=== PATIENT | female | born 1950 | race Hispanic/Latino ===

== ENCOUNTER 2017-02-10 07:12 | Outpatient (CLI) | payer MEDICARE | END 2017-02-10 07:13 | disposition home or self-care (01) | LOC: BICMAMMO 07:12 | PROVIDERS: ATTEND Nurse Practitioner Family | DX: Z12.31 Encounter for screening mammogram for malignant neoplasm of breast (principal) | CPT/HCPCS: 77063; G0202; 77067 ==

== ENCOUNTER 2017-05-31 18:16 | Emergency (ER) | payer MEDICARE ==
[2017-05-31] MEDS ORDERED: HYDROcodone/Acetaminophen 5/325 mg Tablet ONE (19:52)
[2017-05-31] MEDS ORDERED: Adacel (T-DAP) 0.5 ML VIAL ONE (19:52)
[2017-05-31] MEDS ORDERED: Bacitracin Zinc 1 Packet ONE (20:03)
--- NOTE | 2017-05-31 20:03 | RAD ---
RIGHT TIBIA AND FIBULA TWO VIEWS: HISTORY: A 67-year-old female with right tibia and fibula pain. FINDINGS: Minimal focal soft tissue swelling over the anterior aspect of the proximal tibia. No fracture or di slocation. IMPRESSION: Focal anterior soft tissue swelling without fracture or dislocation. POS: VERN
== END 2017-05-31 20:20 | disposition home or self-care (01) ==
LOC: ERS 18:16
DX: S80.11XA Contusion of right lower leg, initial encounter (principal); E11.9 Type 2 diabetes mellitus without complications; E78.5 Hyperlipidemia, unspecified; E03.9 Hypothyroidism, unspecified; I10 Essential (primary) hypertension; M81.0 Age-related osteoporosis without current pathological fracture; F32.9 Major depressive disorder, single episode, unspecified; W20.8XXA Other cause of strike by thrown, projected or falling object, initial encounter
CPT/HCPCS: 90471; 90715

== ENCOUNTER 2018-03-11 10:32 | Outpatient (CLI) | payer MEDICARE | END 2018-03-11 10:33 | disposition home or self-care (01) | LOC: BICMAMMO 10:32 | PROVIDERS: ATTEND Nurse Practitioner Family | DX: Z12.31 Encounter for screening mammogram for malignant neoplasm of breast (principal) | CPT/HCPCS: 77063; 77067 ==

== ENCOUNTER 2018-11-05 12:13 | Emergency (ER) | payer MEDICARE ==
[2018-11-05 13:06] LABS: #Basophils 0.1 thou/uL (0.0-0.2); #Eosinphils 0.2 thou/uL (0.0-0.7); #Lymphocytes 1.4 thou/uL (1.20-3.40); #Monocytes 0.4 thou/uL (0.11-0.59); #Neutrophils 3.8 thou/uL (1.40-6.50); %Basophils 0.9 % (0.0-1.0); %Lymphocytes 24.7 % (21.0-51.0); %Monocytes 6.9 % (0.0-10.0); %Neutrophils 64.5 % (42.0-75.0); Hemoglobin 14.5 g/dL (12.0-16.0); Mean Corpuscular HGB CONC 34.4 g/dL (32.0-36.0); Mean Corpuscular Volume 87.3 fL (78.0-98.0); Platelet Count 151 thou/uL (130-400); RBC Distribution Width 12.5 % (11.5-14.5); Red Blood Cell (RBC) Count 4.83 mill/uL (4.20-5.40); White Blood Cell (WBC) Count 5.8 thou/uL (4.8-10.8)
[2018-11-05 13:16] LABS: Bilirubin Negative (Negative); Blood, Urine Negative (Negative); Clarity Clear (Clear); Glucose, Urine (Dipstick) Normal (Negative); Leukocyte Negative Leu/uL (Negative); Nitrite Negative (Negative); Protein, Urine (Dipstick) Negative (Neg-Trace); Urobilinogen Normal mg/dL (Less than 2)
[2018-11-05 13:29] LABS: ALT (SGPT) 25 U/L (8-55); AST (SGOT) 21 U/L (5-34); Albumin 4.8 g/dL (3.4-4.8); Alkaline Phosphatase 100 U/L (40-150); Anion Gap 12 mmol/L (10-20); BUN (Urea Nitrogen) 16 mg/dL (9.8-20.1); Bilirubin, Total 1.1 mg/dL (0.2-1.2); Calc. Creatinine Clearance 0 mL/min (70-130); Calcium 9.8 mg/dL (7.8-10.44); Carbon Dioxide 26 mmol/L (23-31); Chloride 104 mmol/L (98-107); Estimated GFR-MDRD 55; Globulin 2.8 g/dL (2.4-3.5); Glucose 117 mg/dL (80-115); Lipase 32 U/L (8-78); Potassium 4.1 mmol/L (3.5-5.1); Protein, Total 7.6 g/dL (6.0-8.3); Sodium 138 mmol/L (136-145)
--- NOTE | 2018-11-05 14:13 | CT ---
Exam: CT brain PROVIDED CLINICAL HISTORY: Dizziness COMPARISON: 01/17/2006 FINDINGS: The ventricular system is normal in size and morphology. No evidence for intracranial hemorrhage or mass effect. The extracranial soft tissues and osseous structures demonstrate no evidence for an acute abnormality. Stable likely dystrophic parenchymal calcifications involving the right temporal r egion. IMPRESSION: No evidence for intracranial hemorrhage or mass effect.
== END 2018-11-05 15:57 | disposition home or self-care (01) ==
LOC: ERS 12:13
DX: R53.1 Weakness (principal); T50.905A Adverse effect of unspecified drugs, medicaments and biological substances, initial encounter; E11.9 Type 2 diabetes mellitus without complications; E03.9 Hypothyroidism, unspecified; E78.5 Hyperlipidemia, unspecified; I10 Essential (primary) hypertension; M81.0 Age-related osteoporosis without current pathological fracture; F32.9 Major depressive disorder, single episode, unspecified
CPT/HCPCS: 36415; 70450; 80053; 81003; 83690; 84443; 84484; 85025; 93005; 94760

== ENCOUNTER 2019-11-01 20:24 | Inpatient (IN) | payer MEDICARE, OTHER ==
[~2019-11-01 20:24] MED LIST: Iopamidol-370 76% 500 ML 1 ML ONE
[2019-11-01 21:03] LABS: Bilirubin Negative (Negative); Blood, Urine 1+ (Negative); Clarity Clear (Clear); Glucose, Urine (Dipstick) Normal (Negative); Ketone, Urine Negative (Negative); Leukocyte 75 Leu/uL (Negative); Nitrite Negative (Negative); Protein, Urine (Dipstick) Negative (Neg-Trace); Squamous Epithelial 0-3 HPF (0-3); Urobilinogen Normal mg/dL (Less than 2); pH, Urine 6.5 (5.0-9.0)
[2019-11-01 21:04] LABS: Bacteria/HPF Rare-Few HPF (None Seen)
[2019-11-01] MEDS ORDERED: Ondansetron PF 4 MG/2 ML Vial ONE (21:17)
[2019-11-01] MEDS ORDERED: Morphine 4 MG/ML VIAL ONE (21:17)
--- NOTE | 2019-11-01 21:33 | ULT ---
EXAM: US Gallbladder RUQ CLINICAL HISTORY: Pain.. COMPARISON: None. FINDINGS: Pancreas: See head and proximal pancreatic body have a normal echotexture. The remainder the pancrea s is obscured by bowel gas Liver:Heterogeneous echotexture of the liver may be due to hepatic steatosis or hepatocellular diseas e. Subsequent limited evaluation for hepatic masses and intrahepatic biliary dilatation. Right hepatic lobe: 14.3 cm Gallbladder: No sonographic evidence of cholelithiasis, gallbladder wall thickening or pericholecysti c fluid. Louis's sign:Negative Portal Vein: Patent. Appropriate directional flow Bile ducts: 0.7 cm common bile duct diameter Right kidney: No hydronephrosis. Right kidney measures 3.8 x 3.5 x 8.3 cm in length. IMPRESSION: 1. No sonographic evidence of cholelithiasis or cholecystitis. 2. Common bile duct diameter within limits for patient age. 3. Heterogeneous echotexture of liver which may be due to hepatic steatosis or hepatocellular disease .
[2019-11-01 21:59] LABS: #Eosinphils 0.2 thou/uL (0.0-0.7); #Lymphocytes 0.8 thou/uL (1.20-3.40); #Monocytes 0.4 thou/uL (0.11-0.59); %Basophils 0.3 % (0.0-1.0); %Eosinophils 2.2 % (0.0-10.0); %Lymphocytes 10.9 % (21.0-51.0); %Monocytes 5.6 % (0.0-10.0); Hemoglobin 14.5 g/dL (12.0-16.0); Mean Corpuscular Hemoglobin 28.4 pg (27.0-31.0); Mean Corpuscular Volume 86.1 fL (78.0-98.0); Mean Platelet Volume 10.3 fL (7.4-10.4); Platelet Count 159 thou/uL (130-400); RBC Distribution Width 13.4 % (11.5-14.5); Red Blood Cell (RBC) Count 5.11 mill/uL (4.20-5.40); White Blood Cell (WBC) Count 7.4 thou/uL (4.8-10.8)
[2019-11-01 22:56] LABS: Albumin 4.3 g/dL (3.4-4.8)
[2019-11-01 22:57] LABS: Chloride 105 mmol/L (98-107); Potassium 3.7 mmol/L (3.5-5.1); Sodium 140 mmol/L (136-145)
[2019-11-01 22:58] LABS: Globulin 2.8 g/dL (2.4-3.5); Glucose 127 mg/dL (80-115); Protein, Total 7.1 g/dL (6.0-8.3)
[2019-11-01 23:00] LABS: Anion Gap 13 mmol/L (10-20); Bilirubin, Total 1.8 mg/dL (0.2-1.2); Carbon Dioxide 26 mmol/L (23-31)
[2019-11-01 23:01] LABS: Alkaline Phosphatase 234 U/L (40-110); Calc. Creatinine Clearance 0 mL/min (70-130); Estimated GFR-MDRD 60
[2019-11-01 23:02] LABS: BUN (Urea Nitrogen) 11 mg/dL (9.8-20.1)
[2019-11-01 23:03] LABS: AST (SGOT) 881 U/L (5-34)
[2019-11-01 23:04] LABS: ALT (SGPT) 686 U/L (8-55); Lipase 39 U/L (8-78)
--- NOTE | 2019-11-01 23:31 | CT ---
EXAM: CT ABDOMEN AND PELVIS HISTORY: Abdominal pain, x2 weeks. COMPARISON: None. Procedure: Multiple contiguous axial images were obtained and a CT of the abdomen and pelvis with IV contrast. C oronal reformats were performed. FINDINGS: Lower Chest: Scar and atelectasis in the lung bases Vessels: Normal caliber aorta. No significant atherosclerosis Heart: Normal heart size. No significant pericardial fluid Abdomen: Portal vein:Patent Gallbladder: Gallbladder is moderately distended with minimal hyperemia of the gallbladder wall. No d efinite evidence of: Lithiasis. No CT evidence of choledocholithiasis. If there is concern for acalculous cholecystitis, consider HIDA scan. Common bile duct diameter at the upper limits of normal . No CT evidence of choledocholithiasis. Liver: within normal limits. Pancreas: within normal limits. Spleen: within normal limits. Adrenals: within normal limits. Kidneys: Symmetric enhancement. No obstructive uropathy. Subcentimeter hypodensity in the left or rig ht renal cortex are too small to characterize but is statistically favored to be cysts. Peritoneum: No ascites or free air, no fluid collection. Bowel: Limited evaluation due to the lack of oral contrast administration. No evidence of bowel obstr uction. Ileocecal junction is unremarkable. Normal caliber appendix. Scattered fecal material in a nondistended, nondilated colon. Mesentery and Retroperitoneum: No enlarged mesenteric or retroperitoneal lymph nodes. Abdominal Wall: within normal limits. Pelvis: Reproductive Organs: Reproductive organs are unremarkable. Pelvis: No mass, lymphadenopathy, free air or free fluid. Bladder: within normal limits. Bones: within normal limits. IMPRESSION: 1. Moderately distended gallbladder without definite evidence of cholelithiasis. Correlate for acalcu steph cholecystitis, consider HIDA scan.
[2019-11-02] MEDS ORDERED: Ondansetron ODT 4 MG TAB PO PRN (00:28)
[2019-11-02] MEDS ORDERED: Ondansetron PF 4 MG/2 ML Vial IVP PRN (00:28)
[2019-11-02] MEDS ORDERED: Morphine 4 MG/ML VIAL SLOW IVP PRN (00:31)
--- NOTE | 2019-11-02 00:34 | PDOC.HHP ---
Hospitalist HPI - History of Present Illness Abdominal pain x 2 weeks History of Present Illness: PCP: [facility] The patient is algerian speaking, so a financial underwriter was utilized for the H&P. The patient is a 69 year old female with past medical history significant for DMII, HLD, HTN and hypothyroidism that presents to the ER for the above complaint. The patient reports abdominal pain x 2 weeks, located epigastric region, describes at "hot and swollen", constant, exacerbated with oral intake and relieved by nothing. Reports associated nausea and vomiting. Denies hematemesis, niharika stools or dark urine. Denies fever, chest pain and SOB. Has no other complaints at this time. ED Course: VITAL SIGNS WedNov 01, 2019 20:26 CATHERINE Perla Kassidy BP: 173/75, Pulse: 98, Resp: 20, Temp: 98.4 (Oral), Pain: 4, O2 sat: 97 on ( Room Air), Time: 11/01/2019 20:26. VITAL SIGNS WedNov 01, 2019 21:50 CATHERINE Berry Emily BP: 165/90, Pulse: 98, Resp: 20, O2 sat: 98 on (Room Air), Time: 11/01/2019 21: 50. VITAL SIGNS WedNov 01, 2019 22:30 CATHERINE Berry Emily BP: 161/86, Pulse: 79, Resp: 18, O2 sat: 96 on (Room Air), Time: 11/01/2019 22:30. Katalina Nov 02, 2019 00:21 Drug Name Dose Ordered Route Status Time morphine (PF) injection 4 mg IV Push Given 21:50 11/01/2019 *Normal Saline 1 L IV Fluid Infusion Given 21:49 11/01/2019 Zofran intravenous 4 mg IV Push Given 21:49 11/01/2019 Hospitalist ROS - Review of Systems Constitutional: denies: fever, chills Respiratory: denies: cough, shortness of breath Cardiovascular: denies: chest pain, palpitations, edema, light headedness Gastrointestinal: reports: nausea, vomiting, abdominal pain. denies: diarrhea, constipation, melena, hematochezia Genitourinary: denies: dysuria, frequency, hematuria Neurological: denies: weakness, numbness, incoordination, change in speech All other systems reviewed; all pertinent +/- noted in HPI/Subj - Medication Medications: Home Medications: Patient is poor historian. Unknown blood pressure, cholesterol and thyroid medications. Does not take anything for her diabetes. Allergies: No Known Drug Allergies Hospitalist History - Past Medical History Source: patient, RN notes reviewed Other Medical History: MEDICAL HISTORY Past medical history includes history of diabetes, Type II, Past medical history includes endocrine disease, hypothyroidism, Past medical history includes history of hyperlipidemia, high cholesterol, Past medical history includes history of hypertension, which has been treated. osteoporosis. FEMALE SURGICAL HISTORY Surgical history of tubal ligation. PSYCHIATRIC HISTORY Psychiatric history includes, depression, no previous inpatient psychiatric admissions. SOCIAL HISTORY Patient denies alcohol use, Patient denies drug use, Patient has no smoking history. Lives at home with family. Retired. Ambulates without assistance. FAMILY HISTORY: poor historian. unable to confirm. - Exam General Appearance: NAD, awake alert. negative: ill appearing General - other findings: mildly uncomfortable Eye: anicteric sclera ENT: normocephalic atraumatic Neck: supple, symmetric Heart: RRR, no murmur, no gallops, no rubs, normal peripheral pulses Respiratory: CTAB, no wheezes, no rales, no ronchi, normal chest expansion, no tachypnea Gastrointestinal: soft, non-distended, normal bowel sounds, no bruit, no guarding, no rigidity, tender to palpation (mildly tender epigastric and RUQ, negative glaser sign) Extremities: no cyanosis, no edema Skin: no rashes Neurological: normal sensation to touch, no weakness, no focal deficits Psychiatric: normal affect, A&O x 3 Hospitalist Results - Labs Result Diagrams: 11/01/19 21:48 11/01/19 22:34 Lab results: WBC 7.4 thou/uL (4.8-10.8) 11/01/19 21:48 Hgb 14.5 g/dL (12.0-16.0) 11/01/19 21:48 Hct 44.0 % (36.0-47.0) 11/01/19 21:48 MCV 86.1 fL (78.0-98.0) 11/01/19 21:48 Plt Count 159 thou/uL (130-400) 11/01/19 21:48 Neutrophils % 81.0 % (42.0-75.0) H 11/01/19 21:48 Sodium 140 mmol/L (136-145) 11/01/19 22:34 Potassium 3.7 mmol/L (3.5-5.1) 11/01/19 22:34 Chloride 105 mmol/L (98-107) 11/01/19 22:34 Carbon Dioxide 26 mmol/L (23-31) 11/01/19 22:34 BUN 11 mg/dL (9.8-20.1) 11/01/19 22:34 Creatinine 0.92 mg/dL (0.6-1.1) 11/01/19 22:34 Glucose 127 mg/dL (80-115) H 11/01/19 22:34 Calcium 9.0 mg/dL (7.8-10.44) 11/01/19 22:34 Total Bilirubin 1.8 mg/dL (0.2-1.2) H 11/01/19 22:34 AST 881 U/L (5-34) H 11/01/19 22:34 ALT 686 U/L (8-55) H 11/01/19 22:34 Alkaline Phosphatase 234 U/L (40-110) H 11/01/19 22:34 Troponin I Less than 0.010 ng/mL (< 0.028) 11/01/19 21:48 Serum Total Protein 7.1 g/dL (6.0-8.3) 11/01/19 22:34 Albumin 4.3 g/dL (3.4-4.8) 11/01/19 22:34 Lipase 39 U/L (8-78) 11/01/19 22:34 Urine Ketones Negative mg/dL (Negative) 11/01/19 20:32 Urine Blood 1+ (Negative) A 11/01/19 20:32 Urine Nitrite Negative (Negative) 11/01/19 20:32 Ur Leukocyte Esterase 75 Monico/uL (Negative) A 11/01/19 20:32 Urine RBC 7-10 HPF (0-3) A 11/01/19 20:32 Urine WBC 4-6 HPF (0-3) A 11/01/19 20:32 Ur Squamous Epith Cells 0-3 HPF (0-3) 11/01/19 20:32 Urine Bacteria Rare-Few HPF (None Seen) 11/01/19 20:32 - EKG Interpretation EK lead EKG interpreted by Emergency Department Physician at time of study, 12 lead EKG shows, sinus arrhythmia, Rate (beats per minute): 88, Conduction normal , ST segments normal, T waves normal, [place] normal, Clinical impression:, no stemi. - Radiology Interpretation CT scan - abdomen Status: report reviewed by me Additional Comment: IMPRESSION: 1. Moderately distended gallbladder without definite evidence of cholelithiasis. Correlate for acalcu steph cholecystitis, consider HIDA scan. Other Status: report reviewed by me Additional Comment: RUQ US: Impression: 1. No sonographic evidence of cholelithiasis or cholecystitis. 2. Common bile duct diameter within limits for patient age. 3. Heterogeneous echotexture of liver which may be due to hepatic steatosis or hepatocellular disease Hospitalist H&P A/P - Problem (1) Acalculous cholecystitis Code(s): K81.9 - CHOLECYSTITIS, UNSPECIFIED Status: Acute Assessment and Plan: Suspected. Admit to medical floor, observation status. Expected length of stay less than 2 midnights. Presented hypertensive, with normal pulse, normal respirations, afebrile. No signs of acute abdomen. CT abdomen/pelvis shows moderate distention gall bladder without definite evidence for cholelithiasis. Consider HIDA. RUQ US shows no sonographic evidence of cholelithiasis or cholecystitis. Common bile duct diameter within limits for patient age. Heterogeneous echotexture of liver which may be due to hepatic steatosis or hepatocellular disease. Bilirubin 1.8, ALT 686, AST 234, ALP 234, Lipase 39, WBC 7.4 HIDA scan. Consult GI, npo, IVF, morphine and zofran prn. Start Zosyn IVPB. (2) HTN (hypertension) Code(s): I10 - ESSENTIAL (PRIMARY) HYPERTENSION Status: Chronic Assessment and Plan: Presented hypertensive in ER. Patient does not know the names of her home medications. Will monitor BP and add prn antihypertensives if necessary. (3) DMII (diabetes mellitus, type 2) Status: Chronic Assessment and Plan: Patient reports controlled with lifestyle changes, no medications. Presented with BG 127. Will start mild sliding scale. AC/HS checks. (4) HLD (hyperlipidemia) Code(s): E78.5 - HYPERLIPIDEMIA, UNSPECIFIED Status: Chronic Assessment and Plan: Patient does not know her home medication name. Will await nursing to reconcile home med list. Will hold for now given elevation with LFTs. (5) Hypothyroidism Code(s): E03.9 - HYPOTHYROIDISM, UNSPECIFIED Status: Chronic Assessment and Plan: Unknown home medication. Will await nursing to reconcile home medications. - Plan Plan: Consult PT LMWH for DVT prophylaxis Pepcid for GI prophylaxis. Full Code. Designated contact is ZULY GARCIA, DAUGHTER [phone]. Discussed case with Dr. Lorenzo Krishna.
[2019-11-02] MEDS ORDERED: Dextrose 5% in Water 1,000 ML IV PRN (01:09)
[2019-11-02] MEDS ORDERED: Dextrose 50% Abboject 50 ML SYRINGE SLOW IVP PRN (01:09)
[2019-11-02] MEDS ORDERED: HumaLOG 300 UNITS/3 ML VIAL SC PRN ×2 (01:09)
[2019-11-02] MEDS: Sodium Chloride 0.9% 1,000 ML IV SCH ×4 (02:20→20:35)
[2019-11-02] MEDS: Piperacillin/Tazobactam 4.5 GM in Sodium Chloride 0.9% 100 ML IVPB SCH ×4 (02:24→20:29)
[2019-11-02 03:35] VITALS: BMI 24.7
[2019-11-02 06:06] LABS: #Eosinphils 0.1 thou/uL (0.0-0.7); #Lymphocytes 0.6 thou/uL (1.20-3.40); #Monocytes 0.5 thou/uL (0.11-0.59); #Neutrophils 5.4 thou/uL (1.40-6.50); %Basophils 0.1 % (0.0-1.0); %Eosinophils 2.1 % (0.0-10.0); %Lymphocytes 8.4 % (21.0-51.0); %Monocytes 7.2 % (0.0-10.0); %Neutrophils 82.3 % (42.0-75.0); Mean Corpuscular Hemoglobin 28.3 pg (27.0-31.0); Mean Corpuscular Volume 88.6 fL (78.0-98.0); Mean Platelet Volume 9.2 fL (7.4-10.4); Platelet Count 128 thou/uL (130-400); RBC Distribution Width 13.2 % (11.5-14.5); Red Blood Cell (RBC) Count 4.59 mill/uL (4.20-5.40); White Blood Cell (WBC) Count 6.5 thou/uL (4.8-10.8)
[2019-11-02 06:30] LABS: ALT (SGPT) 944 U/L (8-55); AST (SGOT) 814 U/L (5-34); Alkaline Phosphatase 261 U/L (40-110); Anion Gap 16 mmol/L (10-20); BUN (Urea Nitrogen) 9 mg/dL (9.8-20.1); Bilirubin, Total 1.8 mg/dL (0.2-1.2); Calc. Creatinine Clearance 56 mL/min (70-130); Calcium 8.9 mg/dL (7.8-10.44); Carbon Dioxide 19 mmol/L (23-31); Cardiac Risk 2.2 (Less than 4.5); Chloride 107 mmol/L (98-107); Cholesterol 131 mg/dl (< 200 Desired); Estimated GFR-MDRD 69; Globulin 2.8 g/dL (2.4-3.5); Glucose 108 mg/dL (80-115); HDL Cholesterol 59 mg/dL (>60 Neg Risk); LDL Cholesterol, Calculated 60 mg/dL; Potassium 4.5 mmol/L (3.5-5.1); Protein, Total 6.8 g/dL (6.0-8.3); Sodium 137 mmol/L (136-145); Triglycerides 59 mg/dL (Less than 150)
[2019-11-02] MEDS: Enoxaparin Sodium 40 MG/0.4 ML SYRINGE SC SCH (08:27)
--- NOTE | 2019-11-02 13:07 | PDOC.HOSPP ---
- Subjective Encounter Date: 11/02/19 Encounter Time: 10:00 Subjective: The patient reports that she has abdominal pain in epigastric and LUQ. She states it is intermittent, dull, nonradiating. No nausea or vomiting. She states that this has been occurring for two weeks. One month ago she stopped eating spicy food due to heartburn. She also stopped eating greasy food because it made her go to the bathroom a lot. - Objective Vital Signs & Weight: Vital Signs (12 hours) Temp Pulse Resp BP BP Pulse Ox 11/02/19 12:50 98 F 111 H 16 166/87 H 96 11/02/19 08:23 98.1 F 109 H 20 143/77 H 96 11/02/19 07:49 98.1 F 109 H 20 143/77 H 96 11/02/19 04:57 98.2 F 100 20 144/85 H 98 11/02/19 01:37 98.0 F 109 H 18 170/96 H 96 11/02/19 01:30 98.0 F 109 H 18 170/96 H 96 Weight Weight 122 lb 4.8 oz I&O: 11/01/19 11/02/19 11/03/19 06:59 06:59 06:59 Intake Total 100 Balance 100 Result Diagrams: 11/02/19 05:22 11/02/19 05:22 Additional Labs: Accuchecks 11/02/19 04:30 POC Glucose 128 H Hospitalist ROS - Review of Systems Constitutional: denies: fever, chills - Medication Medications: Active Medications Generic Name Dose Route Start Last Admin Trade Name Simba PRN Reason Stop Dose Admin Enoxaparin Sodium 40 mg 11/02/19 09:00 11/02/19 08:27 Lovenox SC 40 mg 0900 RADHA Administration Sodium Chloride 1,000 mls @ 100 mls/hr 11/02/19 00:30 11/02/19 02:20 Normal Saline 0.9% IV 1,000 mls .Q10H RADHA Administration Piperacillin Sod/Tazobactam 100 mls @ 200 mls/hr 11/02/19 02:00 11/02/19 08: 23 Sod 4.5 gm/ Sodium Chloride IVPB 100 mls 0200,0800,1400,2000 RADHA Administration Sodium Chloride 10 ml 11/02/19 09:00 11/02/19 08:28 Flush - Normal Saline IVF Not Given Q12HR RADHA - Exam General Appearance: NAD, awake alert Eye: PERRL, anicteric sclera ENT: normocephalic atraumatic, no oropharyngeal lesions Neck: no JVD Heart: RRR, no murmur, no gallops, no rubs Respiratory: CTAB, no wheezes, no rales, no ronchi Gastrointestinal: soft Gastrointestinal - other findings: LUQ tenderness, epigastric tenderness Extremities: no cyanosis, no clubbing, no edema Skin: normal turgor, no lesions, no rashes Neurological: cranial nerve grossly intact, normal sensation to touch, no focal deficits, no new deficit Hosp A/P - Plan CT abdomen: moderately distended GB without cholelithiasis. Correlate for acalculous cholecystitis Abdominal US: no cholelithiasis or cholecystitis This is a 69 year old female who presented with two week history of abdominal pain, admitted for transaminitis Abdominal pain with transaminitis - CT abdomen showed moderately distended GB, abdominal US was normal - MRCP ordered and HIDA scan - will check hepatitis panel. GI consulted - LFTS have downtrended some - will check autoimmune workup, BHANU, antimitochondrial, antismooth muscle antibody, ceruloplasmin level, alpha 1 antitrypsin - continue zosyn for now
[2019-11-02 13:29] LABS: SARS-CoV-2 MS2 Positive; SARS-CoV-2 N Gene Negative; SARS-CoV-2 S Gene Negative; SARS-CoV-2 by NAA Not Detected (NotDetected); SARS-CoV-2 orf1ab Negative
[2019-11-02 14:19] LABS: HBCM Index 0.06 S/CO (0-0.79); HBSAg Index 0.21 S/CO (0-0.99); Hep A IgM AB Non-Reactive (NonReactive); Hep A IgM S/CO 0.16 S/CO (0-0.79); Hep B Surf Ag Non-Reactive S/CO (NonReactive); Hep C IgG Ab Non-Reactive (NonReactive); Hep C Index 0.07 S/CO (0-0.79); Hepatitis B Core IgM Abs Non-Reactive (NonReactive)
--- NOTE | 2019-11-02 14:24 | MRI ---
MRI ABDOMEN WITHOUT CONTRAST: 11/02/19 HISTORY: Abdominal pain, transaminitis, epigastric pain. FINDINGS: the gallbladder is well distended measuring about 8.5 cm without cholelithiasis. The common bile duct measures 7 mm in diameter. No choledocholithiasis is seen. The noncontrast images of the liver, sple en, pancreas and adrenal glands are within normal limits given the absence of IV contrast. Bilateral renal cysts are present. No free fluid or lymphadenopathy is noted. No evidence of abdominal aortic aneurysm is seen. The bone marrow signal is normal. IMPRESSION: 1. No evidence of cholelithiasis/choledocholithiasis or biliary obstruction. 2. Bilateral renal cysts. POS: OFF
--- NOTE | 2019-11-02 15:18 | PDOC.EVN ---
Event Note - Event Note Event Note: HIDA scan reportedly shows no ejection fraction from gallbladder per GI. Notified Dr. Mason who will evaluate patient
[2019-11-02] MEDS ORDERED: Ketorolac Tromethamine 30 MG/ML VIAL IVP SCH (15:30)
[2019-11-02] MEDS ORDERED: Scopolamine 1.5 mg/72 hour Patch TD SCH (16:00)
--- NOTE | 2019-11-02 16:13 | NM ---
HEPATOBILIARY SCAN: 11/02/19 HISTORY: Right upper quadrant pain. No gallstones on ultrasound of 11/01/19. RADIOPHARMACEUTICAL: 5 millicuries technetium 99m-Mebrofenin injected intravenously. FINDINGS: There is good tracer extraction by the liver with prompt excretion of the biliary tract and small bow el loops and normal filling of the gallbladder. No significant tracer excretion from the gallbladder was seen following a 13 minute infusion of 1.1 m icrograms CCK-8. The calculated gallbladder ejection fraction is 0%. IMPRESSION: Gallbladder dyskinesia/chronic acalculous cholecystitis. POS: OFF
[2019-11-02] MEDS ORDERED: traMADol HCl 50 MG TAB PO PRN (17:16)
[2019-11-02] MEDS ORDERED: Ketorolac Tromethamine 30 MG/ML VIAL IVP PRN (17:16)
[2019-11-02] MEDS ORDERED: Acetaminophen 500 MG TAB PO PRN (17:16)
--- NOTE | 2019-11-02 23:38 | CON ---
DATE OF CONSULTATION: HISTORY OF PRESENT ILLNESS: Ángela Diaz is a 69-year-old female with intermittent epigastric upper abdominal pain for 2 weeks. This has been more constant recently. She was admitted to the hospital yesterday by the hospitalist, seen by Dr. Park. The patient had abdominal pelvic CAT scan revealing distended gallbladder. She had an ultrasound of her gallbladder, noting distended gallbladder without stones or sludge and a 7 mm bile duct. Then, underwent hepatobiliary scan today revealing gallbladder dyskinesia, acalculous cholecystitis, gallbladder filled, but there was no ejection fraction. MRI abdomen obtained today reveals no evidence of biliary obstruction, otherwise unremarkable except for renal cyst. White count 6 and hemoglobin 13. Liver function tests are elevated; bilirubin 1.8, AST 814, ALT 944, alkaline phosphatase 261, and lipase is normal. COVID PCR is negative. Hepatitis workup negative for viral disease. EKG is normal. ALLERGIES: NONE. SOCIAL HISTORY: Tobacco, none. Alcohol, none. MEDICATIONS: None. PAST SURGICAL HISTORY: Tubal ligation. PAST MEDICAL HISTORY: Noncontributory. REVIEW OF SYSTEMS: Noncontributory. FAMILY HISTORY: Noncontributory. PHYSICAL EXAMINATION: VITAL SIGNS: 4 feet 11 inches, 122 pounds, and 24 BMI. 98.1, 117, and 174/84. HEAD, EARS, EYES, NOSE, AND THROAT: Unremarkable. LUNGS: Clear to auscultation. CARDIAC: Regular rate and rhythm without murmur or gallop. ABDOMEN: Soft. Tenderness in the epigastric right upper quadrant with mild guarding. EXTREMITIES: Unremarkable. ASSESSMENT AND PLAN: 1. Acalculous cholecystitis. We will recommend laparoscopic video cholecystectomy. Her bile duct is normal caliber. MRI does not reveal any obstructive biliary symptoms. I do not see any benefit in doing a cholangiogram. Personal review of her CAT scan does not reveal any significant constipation or does reveal right colon abundant stool, but left colon seems to be decompressed. 2. Abdominal pain with distended gallbladder, abnormal liver function tests. Would plan laparoscopic video cholecystectomy. She understands risks and benefits of surgery. Risks of infection, bleeding, visceral and biliary injury, open procedure, postoperative bleeding, etc., and consents. Job ID: [id number]
[2019-11-03] MEDS ORDERED: Dextrose 5 % And 0.9 % NaCl 1,000 ML IV SCH
[2019-11-03] MEDS: Piperacillin/Tazobactam 4.5 GM in Sodium Chloride 0.9% 100 ML IVPB SCH ×2 (01:22→08:39)
--- NOTE | 2019-11-03 01:31 | CON ---
DATE OF CONSULTATION: 11/02/2019 REASON FOR CONSULTATION: Elevated LFTs, right upper quadrant abdominal pain. CONSULTING PROVIDER: Mr. Christian Lewis. HISTORY OF PRESENT ILLNESS: The patient is a 69-year-old female with past medical history of diabetes, hyperlipidemia, hypertension, and hypothyroidism, initially presenting with complaints of abdominal pain. She states that she was in her usual state of health until approximately 2 weeks ago when she began having increased midepigastric abdominal pain characterized as an aching type sensation, would radiate to the left upper quadrant was constant with waxing/waning severity, and reached a severity of 5 to 6/10. This pain was worse with the consumption of certain foods including spicy foods, greasy food, and chocolate and was made better with the administration of pain medications. With worsening of this abdominal pain over the last 24 hours and then prompted her to seek healthcare assistance in the [facility] ER and while in the ER, she was noted to have abnormal GI imaging showing significant distention of the gallbladder concerning for cholecystitis in addition to significantly elevated LFTs concerning for an underlying hepatic process currently she is states that she is doing better but does state that she had associate anorexia, nausea without vomiting, constipation, and weight loss of 4 to 5 pounds since July of this year. Currently, she denies any vomiting, hematemesis, melena, hematochezia, odynophagia, dysphagia, diarrhea, or constipation. REVIEW OF SYSTEMS: A 10-category review of systems was obtained with all responses negative except for the pertinent positives as listed in HPI. PAST MEDICAL HISTORY: As per HPI. PAST SURGICAL HISTORY: Bilateral tubal ligation. FAMILY HISTORY: Denies any GI malignancies. SOCIAL HISTORY: Denies any tobacco, alcohol, or illicit drug use. OUTPATIENT MEDICATIONS: Chart reviewed. The patient seems to be taking an unknown blood pressure, cholesterol, and thyroid medications. ALLERGIES: NO KNOWN DRUG ALLERGIES. PHYSICAL EXAMINATION: VITAL SIGNS: Temperature 98.4, pulse 88, blood pressure 150/68, respiratory rate 20, and saturating 92% on room air. GENERAL: The patient was lying in bed, in no acute distress. Alert and oriented x4, Romansh-speaking only. HEENT: Normocephalic and atraumatic. NECK: Supple. No JVD or scleral icterus noted. CARDIOVASCULAR: Regular rate and rhythm with no discernible murmurs, gallops, or rubs. RESPIRATORY: Clear to auscultation bilaterally with no discernible wheezes or rales. ABDOMEN: Normoactive bowel sounds. Soft and nondistended. Tenderness to palpation in the left upper quadrant midepigastric and right upper quadrants. EXTREMITIES: No cyanosis, clubbing, or edema. LABORATORY DATA: CBC with a white blood cell count of 6.5, hemoglobin 13, hematocrit 40.7, and platelets 128. Chemistry with a sodium of 137, potassium 4.5, chloride 107, CO2 of 19, BUN 9, creatinine 0.82, glucose 108, AST 814, ALT 944, alkaline phosphatase 261, total bilirubin 1.8, albumin 4.0, and lipase 39. Urinalysis was consistent with urinary tract infection. IMAGING DATA: The patient underwent a CT of the abdomen and pelvis on November 01, 2019, which showed moderate distention of the gallbladder wall, but no evidence of cholelithiasis or choledocholithiasis. The common bile duct measured at the upper limits of normal. A right upper quadrant ultrasound was also obtained on November 01, 2019, which showed heterogeneous echotexture of the liver. No evidence of cholelithiasis, but did show gallbladder wall thickening. No evidence of pericholecystic fluid and the common bile duct measures 7 mm in diameter. However, the patient underwent abdominal MRI/MRCP on November 02, 2019, which again confirmed no evidence of cholelithiasis or choledocholithiasis. There was also no evidence of biliary obstruction. However, her HIDA scan was obtained on November 02, 2019, which showed a gallbladder ejection fraction of 0% indicative of gallbladder dyskinesia/chronic acalculous cholecystitis. ASSESSMENT AND PLAN: The patient is a 69-year-old female with past medical history of diabetes, hyperlipidemia, hypertension, and hypothyroidism, presenting with acalculous cholecystitis. Acalculous cholecystitis. The patient is presenting with a 2-week history of increased midepigastric abdominal pain characterized as an aching type sensation and reaching a severity of 5 to 6/10. This pain was made worse with ingestion of primarily solid foods, but she could not clear 5 followed a crescendo/decrescendo pattern. Upon evaluation in the [facility] ER, she was noted to have significantly elevated LFTs, but on imaging is noted to have a significantly distended gallbladder with an ejection fraction of approximately 0% indicative of gallbladder dyskinesia/acalculous cholecystitis. At this time given the significant dilation of the gallbladder and the inability of bile to be stored within the gallbladder, it can cause retrograde flow of bile back into the liver and cause significant inflammation resulting in her elevated LFTs. However, the degree of elevation of her LFT seems too high for the presence of acalculous cholecystitis and may be indicative of an underlying liver disorder. Recommendations; 1. Agree with consultation of General Surgery Service with plans for laparoscopic cholecystectomy tomorrow. 2. Pain control per primary team. 3. Would continue to trend her LFTs especially in the postoperative period to establish if they come back to baseline. 4. Would obtain labs for evaluation of underlying liver disease in light of significant elevation in her LFTs in the acute setting. 5. Agree with placing the patient on Zosyn as part of antibiotic prophylaxis for cholangitis. We will continue to follow peripherally at this point. Please call with any questions. Job ID: [id number]
[2019-11-03 06:05] LABS: Mean Corpuscular HGB CONC 31.7 g/dL (32.0-36.0); Mean Corpuscular Hemoglobin 27.6 pg (27.0-31.0); Mean Corpuscular Volume 87.3 fL (78.0-98.0); Mean Platelet Volume 9.1 fL (7.4-10.4); Platelet Count 148 thou/uL (130-400); Red Blood Cell (RBC) Count 4.72 mill/uL (4.20-5.40); White Blood Cell (WBC) Count 7.2 thou/uL (4.8-10.8)
[2019-11-03 06:27] LABS: ALT (SGPT) 638 U/L (8-55); AST (SGOT) 240 U/L (5-34); Albumin 4.3 g/dL (3.4-4.8); Alkaline Phosphatase 245 U/L (40-110); Anion Gap 14 mmol/L (10-20); BUN (Urea Nitrogen) 8 mg/dL (9.8-20.1); Bilirubin, Total 1.3 mg/dL (0.2-1.2); Calc. Creatinine Clearance 46 mL/min (70-130); Calcium 8.7 mg/dL (7.8-10.44); Carbon Dioxide 24 mmol/L (23-31); Chloride 107 mmol/L (98-107); Estimated GFR-MDRD 55; Globulin 2.8 g/dL (2.4-3.5); Glucose 121 mg/dL (80-115); Potassium 3.5 mmol/L (3.5-5.1); Protein, Total 7.1 g/dL (6.0-8.3); Sodium 141 mmol/L (136-145)
[2019-11-03] MEDS ORDERED: Polyethylene Glycol 3350 17 GM Packet PO SCH (09:00)
[2019-11-03] MEDS: Enoxaparin Sodium 40 MG/0.4 ML SYRINGE SC SCH (09:25)
[2019-11-03] MEDS ORDERED: Bupivacaine PF 0.5% 30 ML VIAL ONE (09:28)
[2019-11-03] MEDS ORDERED: Lidocaine 1% w/Epinephrine 1:100K 20 ML VIAL ONE (09:28)
[2019-11-03] MEDS ORDERED: Fentanyl 100 MCG/2 ML VIAL ONE (09:34)
[2019-11-03] MEDS ORDERED: Glycopyrrolate 0.2 MG/ML 5 ML SYRINGE ONE (09:36)
[2019-11-03] MEDS ORDERED: Ibuprofen 600 MG TAB PO PRN (09:36)
[2019-11-03] MEDS ORDERED: Rocuronium Bromide 10 MG/ML (10ML VIAL) ONE (09:36)
[2019-11-03] MEDS ORDERED: Ondansetron PF 4 MG/2 ML Vial ONE (09:36)
[2019-11-03] MEDS ORDERED: PROPOFOL 200 MG/20 ML VIAL ONE (09:36)
[2019-11-03] MEDS ORDERED: Lidocaine 1% PF 5 ML VIAL ONE (09:36)
[2019-11-03] MEDS ORDERED: SUGAMMADEX SODIUM 200 MG/2 ML VIAL ONE (10:20)
[2019-11-03] MEDS ORDERED: Promethazine HCl 25 MG/ML VIAL SLOW IVP PRN (10:31)
[2019-11-03] MEDS ORDERED: Promethazine HCl 25 MG/ML VIAL IM PRN (10:31)
[2019-11-03] MEDS ORDERED: Ondansetron HCl/PF 4 MG/2 ML Vial IVP PRN (10:31)
--- NOTE | 2019-11-03 12:32 | RAD ---
RADIOGRAPH CHEST 1 VIEW: DATE: 11/03/2019 TIME: 12:12 PM HISTORY: 69-year-old female with cough COMPARISON: 12/31/2014 FINDINGS: There is a new finding of basilar left lower lobe infiltrate. No pulmonary edema or pneumothorax. IMPRESSION: Left lower lobe infiltrate
--- NOTE | 2019-11-03 15:27 | OP ---
DATE OF PROCEDURE: 11/03/2019 PREOPERATIVE DIAGNOSIS: Acute cholecystitis, acalculous. POSTOPERATIVE DIAGNOSIS: Acute cholecystitis, acalculous. PROCEDURE PERFORMED: Laparoscopic video cholecystectomy. FINDINGS: Gallbladder was slightly edematous, no stones. Normal abdominal cavity otherwise. No antibiotics necessary postoperatively. ANESTHESIA: General, local 0.5% Marcaine 30 mL mixed with 1% Xylocaine with epinephrine 20 mL. DESCRIPTION OF PROCEDURE: The patient was taken to the operating room, where under general anesthesia, abdomen was prepared with ChloraPrep and draped in routine fashion. Local anesthetic was infiltrated in the skin and subcutaneous tissue about each port site. Infraumbilical incision was made. Pneumoperitoneum to 15 mmHg obtained with a Veress needle, replaced with a 5 port, video laparoscope inserted. Right subxiphoid incision was made and 11 port placed. Right subcostal incision made. Midclavicular and anterior axillary line 5 ports placed. Liver appeared to be normal. Gallbladder was slightly edematous and inflamed. Fundus was grasped at the cephalad. Omentum cleared from the gallbladder body, identifying the infundibulum, dissecting the cystic artery and duct free, obtaining a critical view, doubly clipping the cystic artery and duct, and gallbladder dissected free from liver bed, obtaining good hemostasis prior to division of final peritoneal attachments. Gallbladder and contents removed and submitted to Pathology. Good hemostasis assured with cautery. Irrigant and pneumoperitoneum evacuated. All instruments were removed and all skin incisions were approximated with interrupted subdermal 4-0 Monocryl and [place] glue applied. Job ID: [id number]
[2019-11-03] MEDS ORDERED: Benzonatate 100 MG CAP PO PRN (17:35)
[2019-11-03] MEDS ORDERED: Famotidine 20 MG TAB PO SCH (17:45)
[2019-11-03 18:37] VITALS: BP 147/80; TEMP 98.4
--- NOTE | 2019-11-04 02:13 | DIS ---
DATE OF ADMISSION: 11/02/2019 DATE OF DISCHARGE: 11/03/2019 DISCHARGE DIAGNOSES: 1. Acute acalculous cholecystitis. 2. Transaminitis. 3. Left lower lobe pneumonia. 4. Bilateral renal cysts. CONSULTATIONS: 1. Sarwat Mason with General Surgery. 2. Fernando Park with Gastroenterology. PROCEDURE: Laparoscopic video cholecystectomy. BRIEF HISTORY OF PRESENT ILLNESS: This is a 69-year-old female with a past medical history of hypertension and diabetes, who presented to the emergency room with abdominal pain for the past two weeks, located in the epigastric region and the left upper quadrant. She stopped eating spicy and greasy food one month prior due to heartburn and indigestion. She felt that her stomach was hot and swollen. She also reported nausea and vomiting. When she presented to the emergency room, her liverenzymes showed an AST of 881, ALT of 686, alkaline phosphatase of 234, and bilirubin of 1.8. She had ultrasound of her gallbladder, which showed no cholelithiasis or cholecystitis, and had a CT scan of her abdomen, which showed a moderately distended gallbladder. She was admitted for further workup. HOSPITAL COURSE: Acute acalculous cholecystitis: The patient had an MRCP done on 11/01 which showed no obstruction. It just showed bilateral renal cysts. GI was consulted. HIDA scan was ordered, which showed gallbladder dyskinesia with an EF of 0%. General Surgery was consulted, and the patient underwent laparoscopic cholecystectomy. The patient did well with no abdominal pain at the time of discharge. She tolerated a regular diet. She is advised to follow up with Dr. Mason. Left lower lobe pneumonia: The patient reported a cough postoperatively from surgery. Chest x-ray showed left lower lobe infiltrate. She will be discharged on Augmentin for 5 days. She did receive Zosyn while in the hospital. She was advised to buy [id number] lozenges. She was given a dose of Tessalon Perles and Pepcid prior to discharge. She should get a repeat chest x-ray in 6 weeks. Transaminitis: The patient's liver enzymes were greater than 800 on admission. On the day of discharge, her AST came down to 240, ALT 638, and alkaline phosphatase 245. She was seen by GI. Immunoglobulin levels were normal on 11/02. Hepatitis serology was negative. The patient had workup for autoimmune hepatitis, primary biliary cirrhosis, Ba disease, Jessica-Mustafa, and CMV which is pending. She should follow up with her PCP in a week. Consider following up with GI in a week with repeat LFTs. Also follow up with Dr. Mason in a week. DISCHARGE PHYSICAL EXAMINATION: VITAL SIGNS: Temperature 98.1, heart rate 78, respiratory rate 20, O2 saturation 97% on room air, and blood pressure 154/63. GENERAL: The patient is alert, awake, and oriented x3. CVS: Regular rate and rhythm with no murmurs, rubs, or gallops. LUNGS: Clear to auscultation bilaterally. ABDOMEN: Positive bowel sounds, soft, nontender, nondistended. EXTREMITIES: No edema. LABORATORY DATA: CBC, 11/02: Normal. CMP, 11/02: Unremarkable except for AST 240, ALT 638, and alkaline phosphatase 245. Lipid panel, 11/01: Triglycerides 59, cholesterol 131, LDL 60, HDL 59, and lipase 39. Immunology panel, 11/02: IgG 967, IgA 250, IgM 117. UA, 10/31: Shows 4 to 6 white blood cells, 7 to 10 rbc's, 75 leukocyte esterase , 1+ blood. Hep serology, 11/01: Negative. COVID PCR, 11/01: Negative. IMAGING DATA: CT abdomen and pelvis, 10/31: Shows moderately distended gallbladder without definite evidence of cholelithiasis. Abdominal ultrasound, 10/31: No evidence of cholelithiasis or cholecystitis. HIDA scan, 11/01: Shows gallbladder dyskinesia/chronic acalculous cholecystitis with an EF of 0%. MRI of abdomen, 11/01: No evidence of cholelithiasis or choledocholithiasis. There are bilateral renal cysts. Chest x-ray, 11/02: Left lower lobe pneumonia. Pathology of gallbladder is pending. DISCHARGE CONDITION: Stable. ACTIVITY: As tolerated. DIET: Diabetic diet. DISCHARGE MEDICATIONS: 1. Augmentin 875/125 mg p.o. b.i.d. 2. Motrin 600 mg p.o. q.6 hours p.r.n. 3. MiraLAX 17 gm p.o. daily p.r.n. 4. Tramadol 50 mg p.o. q.4 hours p.r.n. 5. Tylenol 1000 mg p.o. q.6 hours p.r.n. All other home medications were resumed. DISCHARGE INSTRUCTIONS: The patient to follow up with her PCP in a week. Should get repeat LFTs in a week. Please follow up serologies for BHANU, anti-smooth muscle antibody, ceruloplasmin, CMV, Jessica-Mustafa, antimitochondrial antibody, antitrypsin antibody. Her COVID was negative. Her hep serology was negative. Please repeat a chest x-ray in 6 weeks. Job ID: [id number] [facility]
[2019-11-05 16:48] LABS: ANA Symphony (Qualitative) Negative (Negative); ANA Symphony (Quantitative) 0.3 Ratio (< 0.7 Negative); dsDNA IgG Antibody 1.1 IU/mL (<10 Negative)
[2019-11-05 18:05] LABS: EliA Vaculitis New Method **** NEW METHOD ****; Mitochondrial Ab 1.8 U/mL (<4 Negative)
== END 2019-11-03 18:20 | disposition home or self-care (01) | DRG 417 ==
LOC: ERS 20:24 → OBSVTOIN 11-02 00:27 → T4-A 11-02 00:27
PROVIDERS: ADMIT Internal Medicine; ATTEND Internal Medicine
PROC: 0FT44ZZ Resection of Gallbladder, Percutaneous Endoscopic Approach (ICD-10-PCS; principal; 2019-11-03)
DX: K81.9 Cholecystitis, unspecified (principal); J18.1 Lobar pneumonia, unspecified organism; I10 Essential (primary) hypertension; E11.9 Type 2 diabetes mellitus without complications; E78.5 Hyperlipidemia, unspecified; E03.9 Hypothyroidism, unspecified; R74.0 Nonspecific elevation of levels of transaminase and lactic acid dehydrogenase [LDH]; N28.1 Cyst of kidney, acquired
CPT/HCPCS: 36415; 36416; 36600; 71045; 74177; 74181; 76705; 78227; 80053; 80061; 80074; 81003; 81015; 82103; 82390; 83516; 83690; 84484; 85025; 85027; 86038; 86225; 86644; 87086; 87635; 87798; 93005; 96361; 96374; 96375; A9537; J1650; J2270; J2405; J2543; J3010; J3490; Q9967; S0020; U0003

== ENCOUNTER 2019-11-07 01:55 | Emergency (ER) | payer MEDICARE | END 2019-11-07 02:24 | disposition home or self-care (01) | LOC: ERS 01:55 | DX: Z48.817 Encounter for surgical aftercare following surgery on the skin and subcutaneous tissue (principal); E11.9 Type 2 diabetes mellitus without complications; E03.9 Hypothyroidism, unspecified; E78.5 Hyperlipidemia, unspecified; E78.00 Pure hypercholesterolemia, unspecified; I10 Essential (primary) hypertension; M81.0 Age-related osteoporosis without current pathological fracture; F32.9 Major depressive disorder, single episode, unspecified; Z79.899 Other long term (current) drug therapy | CPT/HCPCS: 99283 ==

== ENCOUNTER 2019-11-24 10:17 | Outpatient (CLI) | payer MEDICARE ==
--- NOTE | 2019-11-24 11:15 | RAD ---
EXAM: Two views chest PROVIDED CLINICAL HISTORY: Aspiration pneumonia COMPARISON: 11/03/2019 FINDINGS: Cardiac and mediastinal silhouette appears within normal limits. Lungs appear free of significant opa city. No pleural fluid or pneumothorax apparent. IMPRESSION: Interval resolution of left lower lobe airspace disease.
== END 2019-11-24 10:18 | disposition home or self-care (01) ==
LOC: BICRAD 10:17
PROVIDERS: ATTEND Internal Medicine
DX: J69.0 Pneumonitis due to inhalation of food and vomit (principal); J98.4 Other disorders of lung
CPT/HCPCS: 71046

== ENCOUNTER 2020-03-07 08:50 | Outpatient (CLI) | payer MEDICARE ==
--- NOTE | 2020-03-07 09:25 | MMO ---
Bilateral MAMMO Bilat Screen [facility]. CLINICAL HISTORY: Patient is 70 years old and is seen for screening. The patient has no family history of breast cancer. The patient has no personal history of cancer. VIEWS: The views performed were: bilateral craniocaudal with tomosynthesis and bilateral mediolateral oblique with tomosynthesis. FILMS COMPARED: The present examination has been compared to prior imaging studies performed at [facility] on 10/24/2014, 10/28/2015, 02/10/2017 and 03/11/2018. This study has been interpreted with the assistance of computer-aided detection. MAMMOGRAM FINDINGS: There are scattered fibroglandular densities. There are no suspicious masses, suspicious calcifications, or new areas of architectural distortion. IMPRESSION: THERE IS NO MAMMOGRAPHIC EVIDENCE OF MALIGNANCY. A ROUTINE FOLLOW-UP MAMMOGRAM IN 1 YEAR IS RECOMMENDED. THE RESULTS OF THIS EXAM WERE SENT TO THE PATIENT. ACR BI-RADS Category 1 - Negative MAMMOGRAPHY NOTE: 1. A negative mammogram report should not delay a biopsy if a dominant of clinically suspicious mass is present. 2. Approximately 10% to 15% of breast cancers are not detected by mammography. 3. Adenosis and dense breasts may obscure an underlying neoplasm. Reported by: TERRI OSUNA MD Electonically Signed: [id number]
== END 2020-03-07 08:51 | disposition home or self-care (01) ==
LOC: BICMAMMO 08:50
PROVIDERS: ATTEND Internal Medicine
DX: Z12.31 Encounter for screening mammogram for malignant neoplasm of breast (principal)
CPT/HCPCS: 77063; 77067

== ENCOUNTER 2021-06-27 13:20 | Outpatient (CLI) | payer MEDICARE | END 2021-06-27 13:21 | disposition home or self-care (01) | LOC: BICRAD 13:20 | PROVIDERS: ATTEND Nurse Practitioner Family | DX: R07.81 Pleurodynia (principal) | CPT/HCPCS: 71046 ==

== ENCOUNTER 2021-11-24 09:11 | Outpatient (CLI) | payer OTHER | END 2021-11-24 09:12 | disposition home or self-care (01) | LOC: BICMAMMO 09:11 | PROVIDERS: ATTEND Nurse Practitioner Family | DX: Z13.820 Encounter for screening for osteoporosis (principal); M81.0 Age-related osteoporosis without current pathological fracture; M85.851 Other specified disorders of bone density and structure, right thigh; M85.852 Other specified disorders of bone density and structure, left thigh | CPT/HCPCS: 77080 ==

== ENCOUNTER 2022-04-04 18:37 | Emergency (ER) | payer OTHER | END 2022-04-04 23:02 | disposition home or self-care (01) | LOC: ERS 18:37 | DX: S09.90XA Unspecified injury of head, initial encounter (principal); S50.12XA Contusion of left forearm, initial encounter; E11.9 Type 2 diabetes mellitus without complications; E03.9 Hypothyroidism, unspecified; E78.00 Pure hypercholesterolemia, unspecified; I10 Essential (primary) hypertension; W01.0XXA Fall on same level from slipping, tripping and stumbling without subsequent striking against object, initial encounter; Z79.899 Other long term (current) drug therapy | CPT/HCPCS: 70450 ==

== ENCOUNTER 2023-04-27 18:28 | Inpatient (IN) | payer OTHER ==
[2023-04-27] MEDS ORDERED: Sodium Chloride 0.9% 100 ML ONE (19:10)
[2023-04-27] MEDS ORDERED: Acetaminophen 500 MG TAB ONE (19:10)
[2023-04-27] MEDS ORDERED: cefTRIAXone (ROCEPHIN) 1 GM VIAL ONE (19:10)
[2023-04-27 19:18] LABS: #Eosinphils 0.4 thou/uL (0.0-0.7); #Monocytes 0.8 thou/uL (0.11-0.59); #Neutrophils 13.2 thou/uL (1.40-6.50); %Basophils 0.3 % (0.0-1.0); %Eosinophils 2.5 % (0.0-10.0); %Lymphocytes 3.7 % (21.0-51.0); %Monocytes 5.2 % (0.0-10.0); %Neutrophils 87.8 % (42.0-75.0); Hematocrit 35.1 % (36.0-47.0); Hemoglobin 11.4 g/dL (12.0-16.0); Mean Corpuscular HGB CONC 32.5 g/dL (32.0-36.0); Mean Corpuscular Volume 86.2 fl (78.0-98.0); Platelet Count 183 10x3/uL (130-400); RBC Distribution Width 13.6 % (11.5-14.5); Red Blood Cell (RBC) Count 4.07 mill/uL (4.20-5.40)
[2023-04-27 19:40] LABS: ALT (SGPT) 72 U/L (8-55); AST (SGOT) 51 U/L (5-34); Albumin 4.1 g/dL (3.4-4.8); Alkaline Phosphatase 212 U/L (40-110); Anion Gap 16 mmol/L (10-20); BUN (Urea Nitrogen) 23 mg/dL (9.8-20.1); Bilirubin, Total 0.9 mg/dL (0.2-1.2); Calc. Creatinine Clearance 0 mL/min (70-130); Calcium 8.8 mg/dL (7.8-10.44); Carbon Dioxide 19 mmol/L (23-31); Chloride 105 mmol/L (98-107); Estimated GFR 48; Globulin 2.9 g/dL (2.4-3.5); Glucose 189 mg/dL (83-110); Lipase 25 U/L (8-78); Potassium 4.3 mmol/L (3.5-5.1); Sodium 136 mmol/L (136-145)
[2023-04-27] MEDS ORDERED: Azithromycin 500 MG VIAL ONE (20:38)
[2023-04-27 21:03] LABS: Bacteria/HPF None Seen HPF (None Seen); Bilirubin Negative (Negative); Blood, Urine 2+ (Negative); CAUTI Indications for Culture Fever or rigors; Clarity Clear (Clear); Glucose, Urine (Dipstick) Normal (Negative); Ketone, Urine Negative (Negative); Leukocyte Negative Leu/uL (Negative); Nitrite Negative (Negative); Protein, Urine (Dipstick) Negative (Neg-Trace); Specific Gravity, Urine 1.012 (1.002-1.036); Squamous Epithelial None Seen HPF (0-3); Urobilinogen Normal mg/dL (Less than 2); WBC/HPF 0-3 HPF (0-3); pH, Urine 5.5 (5.0-9.0)
[2023-04-27 21:10] LABS: Urine Culture Reflex No No
[2023-04-27] MEDS ORDERED: Ondansetron ODT 4 MG TAB PO PRN (22:14)
[2023-04-27] MEDS ORDERED: Acetaminophen 325 MG TAB PO PRN (22:14)
[2023-04-27] MEDS ORDERED: Acetaminophen 650 MG Suppository PR PRN (22:14)
[2023-04-27 22:27] LABS: Influenza A by NAA Not Detected (NotDetected); Influenza B by NAA Not Detected (NotDetected); SARS-CoV-2 NAA Rapid Test Not Detected (NotDetected)
[2023-04-27 23:16] VITALS: BMI 21.9
[2023-04-28] MEDS: Sodium Chloride 0.9% 1,000 ML IV SCH (01:43)
[2023-04-28] MEDS: Benzonatate 100 MG CAP PO PRN (01:43)
[2023-04-28 04:20] LABS: #Eosinphils 0.2 thou/uL (0.0-0.7); #Monocytes 0.6 thou/uL (0.11-0.59); #Neutrophils 11.6 thou/uL (1.40-6.50); %Basophils 0.2 % (0.0-1.0); %Eosinophils 1.3 % (0.0-10.0); %Monocytes 4.4 % (0.0-10.0); %Neutrophils 84.4 % (42.0-75.0); Hematocrit 31.5 % (36.0-47.0); Hemoglobin 10.2 g/dL (12.0-16.0); Mean Corpuscular HGB CONC 32.4 g/dL (32.0-36.0); Mean Corpuscular Hemoglobin 28.2 pg (27.0-31.0); Mean Platelet Volume 11.6 fL (7.4-10.4); Platelet Count 200 10x3/uL (130-400); RBC Distribution Width 13.8 % (11.5-14.5); Red Blood Cell (RBC) Count 3.62 mill/uL (4.20-5.40); White Blood Cell (WBC) Count 13.7 10x3/uL (4.8-10.8)
[2023-04-28 05:11] LABS: Hemoglobin A1c 5.8 % (4.0-6.0)
[2023-04-28 05:15] LABS: ALT (SGPT) 54 U/L (8-55); AST (SGOT) 28 U/L (5-34); Albumin 3.3 g/dL (3.4-4.8); Alkaline Phosphatase 158 U/L (40-110); Bilirubin, Direct 0.2 mg/dL (0.1-0.3); Bilirubin, Total 0.4 mg/dL (0.2-1.2); Protein, Total 5.4 g/dL (5.8-8.1)
[2023-04-28 05:17] LABS: Anion Gap 10 mmol/L (10-20); BUN (Urea Nitrogen) 14 mg/dL (9.8-20.1); Calc. Creatinine Clearance 47 mL/min (70-130); Calcium 7.8 mg/dL (7.8-10.44); Carbon Dioxide 19 mmol/L (23-31); Chloride 113 mmol/L (98-107); Estimated GFR 73; Glucose 142 mg/dL (83-110); Potassium 4.1 mmol/L (3.5-5.1); Sodium 138 mmol/L (136-145)
[2023-04-28] MEDS: Levothyroxine Sodium 25 MCG TAB PO SCH (05:28)
[2023-04-28] MEDS: Aspirin 81 mg Enteric Coated Tablet PO SCH (08:26)
[2023-04-28] MEDS: Enoxaparin 40 MG (0.4 mL) SYRINGE SC SCH (08:26)
[2023-04-28] MEDS: Atorvastatin Calcium 20 MG TAB PO SCH (08:27)
[2023-04-28] MEDS ORDERED: [UNRECOGNIZED DRUG - OTHER] PO SCH (09:00)
[2023-04-28] MEDS ORDERED: Non-Formulary Item 1 EACH (Paroxetine Hcl [Paroxetine Hcl] 10 MG Tablet) PO SCH (09:00)
[2023-04-28] MEDS ORDERED: CALCIUM CARBONATE PO SCH (09:00)
[2023-04-28] MEDS ORDERED: [UNRECOGNIZED DRUG - OTHER] PO SCH (09:00)
[2023-04-28] MEDS ORDERED: VITAMIN D3 PO SCH (09:00)
[2023-04-28] MEDS: Losartan 25 MG TAB PO SCH (10:05)
[2023-04-28] MEDS: guaiFENesin/Codeine 200 mg/20 mg 10 ml Cup PO SCH (10:06)
[2023-04-28] MEDS: FLU VACC QS2023(65UP)/MF59C/PF 60 MCG/0.5 ML SYRINGE IM ONE (10:08)
[2023-04-28] MEDS: cefTRIAXone\\ROCEPHIN 1 GM in Sodium Chloride 0.9% 100 ML IVPB SCH (16:29)
[2023-04-28] MEDS: guaiFENesin/Codeine 200 mg/20 mg 10 ml Cup PO PRN (16:36)
[2023-04-28] MEDS: Azithromycin 500 MG in Sodium Chloride 0.9% 250 ML 250 ML IVPB SCH (17:31)
[2023-04-29] MEDS: Calcium Carbonate 600 MG + Vit D TAB PO SCH (08:44)
[2023-04-29] MEDS: PARoxetine 20 MG TAB PO SCH (08:44)
[2023-04-29] MEDS: Ondansetron PF 4 MG/2 ML Vial IVP PRN (10:58)
[2023-04-29] MEDS: Furosemide 40 MG (4 mL) VIAL SLOW IVP SCH (10:58)
[2023-04-29] MEDS: Ipratropium/Albuterol 3 ML NEB NEB SCH ×2 (15:48→15:55)
[2023-04-30 04:57] LABS: #Eosinphils 0.2 thou/uL (0.0-0.7); #Monocytes 0.5 thou/uL (0.11-0.59); #Neutrophils 3.9 thou/uL (1.40-6.50); %Basophils 0.5 % (0.0-1.0); %Eosinophils 2.4 % (0.0-10.0); %Lymphocytes 29.8 % (21.0-51.0); %Monocytes 6.8 % (0.0-10.0); Hematocrit 36.8 % (36.0-47.0); Hemoglobin 11.9 g/dL (12.0-16.0); Mean Corpuscular HGB CONC 32.3 g/dL (32.0-36.0); Mean Corpuscular Hemoglobin 27.6 pg (27.0-31.0); Mean Corpuscular Volume 85.4 fl (78.0-98.0); Mean Platelet Volume 10.8 fL (7.4-10.4); Platelet Count 260 10x3/uL (130-400); RBC Distribution Width 13.2 % (11.5-14.5); Red Blood Cell (RBC) Count 4.31 mill/uL (4.20-5.40); White Blood Cell (WBC) Count 6.6 10x3/uL (4.8-10.8)
[2023-04-30 05:25] LABS: Anion Gap 16 mmol/L (10-20); BUN (Urea Nitrogen) 13 mg/dL (9.8-20.1); CRP (Inflammatory) 4.47 mg/dL (= or < 0.5); Calc. Creatinine Clearance 40 mL/min (70-130); Calcium 9.3 mg/dL (7.8-10.44); Carbon Dioxide 24 mmol/L (23-31); Chloride 104 mmol/L (98-107); Estimated GFR 59; Glucose 112 mg/dL (83-110); Potassium 4.4 mmol/L (3.5-5.1); Sodium 140 mmol/L (136-145)
[2023-04-30] MEDS: LevoFLOXacin 750 MG TAB PO SCH (08:29)
[2023-04-30] MEDS: Senokot S 8.6-50 MG TAB PO SCH (10:43)
[2023-04-30] MEDS: Polyethylene Glycol 3350 17 GM Packet PO SCH (10:43)
[2023-04-30 12:43] VITALS: BP 130/73; TEMP 98.3
[2023-04-30] MEDS ORDERED: Ipratropium/Albuterol 3 ML NEB NEB SCH (13:00)
== END 2023-04-30 12:47 | disposition home or self-care (01) | DRG 871 ==
LOC: ERS 18:28 → T4-A 21:41 → OBSVTOIN 04-28 12:51
PROVIDERS: ADMIT Student in an Organized Health Care Education/Training Program; ATTEND Family Medicine
DX: A41.9 Sepsis, unspecified organism (principal); J15.69 Pneumonia due to other Gram-negative bacteria; E78.5 Hyperlipidemia, unspecified; J45.909 Unspecified asthma, uncomplicated; R74.01 Elevation of levels of liver transaminase levels; I10 Essential (primary) hypertension; E03.9 Hypothyroidism, unspecified; Z79.899 Other long term (current) drug therapy; Z79.82 Long term (current) use of aspirin; Z79.890 Hormone replacement therapy; Z90.49 Acquired absence of other specified parts of digestive tract; Z98.51 Tubal ligation status
CPT/HCPCS: 36415; 71045; 74176; 80048; 80053; 80076; 81001; 83036; 83605; 83690; 83880; 85025; 86140; 87040; 87086; 93005; 94640; 96361; 96365; 96366; 96372; 96375; G0378; J0456; J0696; J1650; J1940; J2405; J3490; J7050; J7620

== ENCOUNTER 2023-12-09 09:08 | Emergency (ER) | payer MEDICARE, OTHER | END 2023-12-09 09:35 | disposition home or self-care (01) | LOC: ERS 09:08 | DX: J32.9 Chronic sinusitis, unspecified (principal); B96.89 Other specified bacterial agents as the cause of diseases classified elsewhere; R05.9 Cough, unspecified; E11.9 Type 2 diabetes mellitus without complications; I10 Essential (primary) hypertension | CPT/HCPCS: 99283 ==